=== PATIENT | male | born 1960 | race Caucasian/White ===

== ENCOUNTER 2018-03-13 16:22 | Emergency (ER) | payer MEDICARE, MEDICAID ==
[~2018-03-13] VITALS: Ht 182.9 cm; Wt 123.0 kg
[~2018-03-13 16:22] MED LIST: HYDR-3245 PO; HYDR50TA13 PO; OMEP40CA6 PO; PERCOCET PO
--- NOTE | 2018-03-13 17:17 | NUR ---
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
--- NOTE | 2018-03-13 17:20 | NUR ---
PT REPORTS FRONT LEFT NECK PAIN THAT STARTED TODAY. REPORTS PAIN WITH SWALLOWING. HE HAS NEVER HAD THIS BEFORE. DENIES CP AND SOB. PT IS ALERT, ORIENTED, WITH NAD. PT IS CONNECTED TO THE MONITOR. CALL LIGHT WITHIN REACH.
[2018-03-13 17:25] LABS: BASOPHILS # (AUTO) 0.05 x10^3/uL (0-0.1); BASOPHILS % (AUTO) 1 % (0-1); EOSINOPHILS # (AUTO) 0.19 x10^3/uL (0-0.4); EOSINOPHILS % (AUTO) 2 % (1-7); LYMPHOCYTES # (AUTO) 2.51 x10^3/uL (1-3.4); LYMPHOCYTES % (AUTO) 29 % (22-44); MD NO; MEAN CORPUSCULAR HEMOGLOBIN 31.7 pg (27.5-34.5); MEAN CORPUSCULAR HGB CONC 34.1 g/dL (33.2-36.2); MEAN CORPUSCULAR VOLUME 92.8 fL (81-97); MEAN PLATELET VOLUME 8.7 fL (7.4-10.4); MONOCYTES # (AUTO) 0.66 x10^3/uL (0.2-0.8); MONOCYTES % (AUTO) 8 % (2-9); NEUTROPHILS # (AUTO) 5.34 x10^3/uL (1.8-6.8); NEUTROPHILS % (AUTO) 61 % (42-75); PLATELET COUNT 241 x10^3/uL (130-400); RED BLOOD COUNT 4.65 x10^6/uL (4.38-5.82); RED CELL DISTRIBUTION WIDTH 12.8 % (9.4-14.8)
[2018-03-13 17:33] LABS: ALBUMIN 3.8 g/dL (3.4-5.0); ANION GAP 7 mmol/L (5-15); CHLORIDE 110 mmol/L (98-107); CREATININE 1.01 mg/dL (0.7-1.3)
--- NOTE | 2018-03-13 17:59 | NUR ---
Pt is resting in bed, with eyes closed, respirations equal and non labored. NAD. Pt is connected to the monitor. Call light within reach.
--- NOTE | 2018-03-13 18:09 | NUR ---
Provider at bedside.
--- NOTE | 2018-03-13 18:15 | NUR ---
Pt taken to X Ray.
--- NOTE | 2018-03-13 18:51 | NUR ---
Pt is resting in bed, watching TV, respirations equal and non labored. NAD. Pt is connected to the monitor. Call light within reach.
--- NOTE | 2018-03-13 19:09 | NUR ---
Report given to Odalys PARHAM.
--- NOTE | 2018-03-13 19:12 | NUR ---
REPORT REC AT [facility]IS TIME, PT PLACED ON O2 VIA NC SPO2 DOWN TO 88-89% RA. PT NOTES ONSET NECK PAIN THIS DAY, NO DIFFICULTY SWALLOWING OR BREATHING.
--- NOTE | 2018-03-13 19:45 | NUR ---
PT AMBULATED TO CT BY TECH
[2018-03-13 20:06] VITALS: BP 116/72
[2018-03-13] MEDS ORDERED: OMNIPAQUE 350 MG/ML, 100ML BOTTLE ONE (20:06)
== END 2018-03-13 20:53 | disposition home or self-care (01) ==
LOC: ED 20:47
DX: M54.2 Cervicalgia (principal); R05 Cough; J44.9 Chronic obstructive pulmonary disease, unspecified
CPT/HCPCS: 36415; 70360; 70491; 71045; 80048; 82040; 85025; 93005; 99284; Q9967